=== PATIENT | female | born 1975 | race Two or more races ===

== ENCOUNTER → 2025-07-19 | Outpatient (CLI) | payer MEDICAID, SELFPAY ==
--- NOTE | 2025-07-19 16:00 | XR_ITS ---
Examination: CT abdomen, without intravenous contrast. CT pelvis, without intravenous contrast. CT abdomen, with intravenous contrast. CT pelvis, with intravenous contrast. 2-D sagittal coronal reconstructions. Date and time of exam: July 19, 2025, 1615 hours INDICATIONS: Right upper quadrant abdominal pain beginning 2 weeks ago CTDI: vol (mGy) 18.8 DLP: (mGycm) 1055 Technique: Multiple 3.0 axial images of the abdomen and pelvis without intravenous contrast, 3.0 mm slice thickness. Multiple 3.0 postcontrast images abdomen and pelvis also obtained, post intravenous injection 60 cc [id number] 2-D sagittal and coronal reconstructions. Low dose protocols were performed. One or more of the following dose reduction techniques were used; automated exposure control, adjustment of the mA and/or KV according to patient size, use of iterative reconstruction technique. Findings: No focal liver or splenic lesions Contracted gallbladder No pancreatic or adrenal mass No renal or ureteral calculi Biliary stent slightly low in position No extrahepatic biliary tract dilatation No no bowel obstruction Normal appendix Colonic diverticulosis Suspicious for mild acute diverticulitis distal descending colon for instance axial image 166 Contracted urinary bladder Anteverted uterus Moderate osteopenia IMPRESSION: Contracted urinary bladder Biliary stent slightly low in position, no definite extrahepatic biliary tract dilatation but recommend about a biliary sonography follow-up Normal appendix Suspicious for mild acute diverticulitis distal descending colon, no peridiverticular abscess
== END | disposition home or self-care (01) ==
PROVIDERS: Referring Provider Internal Medicine Gastroenterology; Visit Provider Internal Medicine Gastroenterology
DX: N32.89 Other specified disorders of bladder (principal); K63.89 Other specified diseases of intestine
CPT/HCPCS: 74178; A4649; Q9967